=== PATIENT | female | born 1995 | race Caucasian/White ===

== ENCOUNTER → 2020-07-13 | Outpatient (CLI) | payer BC ==
[2020-07-13 13:05] LABS: HEMATOCRIT 40 % (35-52); HEMOGLOBIN 13.7 G/DL (11.5-16.0); MEAN CORPUSCULAR HEMOGLOBIN 31 PG (25-34); MEAN CORPUSCULAR HGB CONC 35 G/DL (32-36); MEAN CORPUSCULAR VOLUME 90 FL (80-99); WHITE BLOOD COUNT 9.7 10^3/uL (4.3-11.0)
[2020-07-13 13:06] LABS: BASOPHILS % (AUTO) 0 % (0-10); EOSINOPHILS % (AUTO) 0 % (0-10); LYMPHOCYTES # (AUTO) 1.7 X 10^3 (1.0-4.0); LYMPHOCYTES % (AUTO) 18 % (12-44); MEAN PLATELET VOLUME 8.8 FL (7.4-10.4); MONOCYTES # (AUTO) 0.5 X 10^3 (0.0-1.0); MONOCYTES % (AUTO) 5 % (0-12); NEUTROPHILS # (AUTO) 7.4 X 10^3 (1.8-7.8); NEUTROPHILS % (AUTO) 76 % (42-75); PLATELET COUNT 304 10^3/uL (130-400)
[2020-07-13 21:48] LABS: HEPATITIS C ANTIBODY C Non-Reactive (Non-Reactive)
== END ==
LOC: LAB FS 12:24
PROVIDERS: ATTEND Obstetrics & Gynecology
DX: Z34.01 Encounter for supervision of normal first pregnancy, first trimester (principal); Z3A.00 Weeks of gestation of pregnancy not specified
CPT/HCPCS: 36415; 80055; 84443; 86762; 86780; 86803

== ENCOUNTER 2021-02-03 23:12 | Inpatient (IN) | payer BC, MEDICAID ==
[~2021-02-03] VITALS: Ht 165 cm; Wt 104.3 kg
[2021-02-03 23:25] VITALS: BP 141/99
[2021-02-03 23:28] VITALS: BP 141/99
[2021-02-03 23:30] VITALS: BP 132/85
[2021-02-03] MEDS: D5 LR IV SOLUTION 1,000 ML IV SCH (23:45)
[2021-02-04] VITALS (50 sets, daily range): BP systolic 103–169; BP diastolic 53–99
[2021-02-04] MEDS ORDERED: fentaNYL 2 mcg/ml BUPIVA 0.125 100 ML ONE (00:02)
[2021-02-04] MEDS ORDERED: NALOXONE 0.4 MG/ML 1 ML (NARCAN) VIAL IV PRN ×3 (00:15→03:00)
[2021-02-04] MEDS ORDERED: LACTATED RINGERS 1,000 ML IV ONE (00:15)
[2021-02-04] MEDS ORDERED: fentaNYL 2 mcg/ml BUPIVA 0.125 100 ML IV SCH (00:15)
[2021-02-04] MEDS ORDERED: CATHETER FLUSH 10 ML SYR IV PRN (00:15)
[2021-02-04 00:23] LABS: BASOPHILS % (AUTO) 0 % (0-10); EOSINOPHILS # (AUTO) 0.1 10^3/uL (0.0-0.3); EOSINOPHILS % (AUTO) 0 % (0-10); HEMATOCRIT 39 % (35-52); HEMOGLOBIN 13.5 g/dL (11.5-16.0); LYMPHOCYTES % (AUTO) 16 % (12-44); MEAN CORPUSCULAR HEMOGLOBIN 32 pg (25-34); MEAN CORPUSCULAR HGB CONC 34 g/dL (32-36); MEAN CORPUSCULAR VOLUME 94 fL (80-99); MEAN PLATELET VOLUME 9.6 fL (9.0-12.2); MONOCYTES # (AUTO) 0.8 10^3/uL (0.0-1.0); MONOCYTES % (AUTO) 6 % (0-12); NEUTROPHILS # (AUTO) 9.4 10^3/uL (1.8-7.8); NEUTROPHILS % (AUTO) 76 % (42-75); PLATELET COUNT 257 10^3/uL (130-400); WHITE BLOOD COUNT 12.4 10^3/uL (4.3-11.0)
[2021-02-04] MEDS ORDERED: BUPIVACAINE 0.25% 30 ML (SENSORCAINE) VIAL ONE (02:20)
[2021-02-04] MEDS ORDERED: fentaNYL INJ 100 MCG/2 ML AMP ONE (02:20)
[2021-02-04] MEDS ORDERED: METOCLOPRAMIDE INJ 10 MG/2 ML (REGLAN) IV PRN (03:00)
[2021-02-04] MEDS ORDERED: EPIDURAL (fentaNYL 2 MCG/ML BUPIVA 0.125%)100 ML BAG EPI PRN (03:00)
[2021-02-04] MEDS ORDERED: diphenhydrAMINE 50 MG/ML INJ (BENADRYL) IV PRN (03:00)
[2021-02-04] MEDS ORDERED: LACTATED RINGERS 1,000 ML IV SCH (03:00)
[2021-02-04] MEDS ORDERED: ONDANSETRON 4 MG/2 ML (SDV) Z0FRAN IV PRN (03:00)
[2021-02-04] MEDS: D5 LR IV SOLUTION 1,000 ML IV SCH ×2 (06:23→16:31)
[2021-02-04] MEDS ORDERED: OXYTOCIN PRE-MIX DRIP 500 ML IV ONE (07:22)
[2021-02-04] MEDS: CATHETER FLUSH 10 ML SYR IV SCH ×2 (07:50→14:39)
[2021-02-04] MEDS ORDERED: OXYTOCIN PRE-MIX DRIP 500 ML IV SCH ×2 (08:00→14:45)
--- NOTE | 2021-02-04 08:28 | History & Physical ---
History and Physical Date Seen by Provider: Feb 04, 2021 Time Seen by Provider: 07:30 This patient is a 25-year-old 1 female who presented in the early hours of the morning with complaint of rupture membranes and occasional contractions. She is currently 40 weeks gestation.She has had no problems with this to date. Her GBS is negative. She was allowed an epidural when the contractions reached intensity that was uncomfortable to her. Allergies are none Medications are vitamins Medical social and surgical history is all per the antepartum record HEENT exam is normal Neck is supple no lymphadenopathy no thyromegaly Abdomen is gravid soft nontender nondistended Extremities show no clubbing cyanosis. There is no Homans' sign. Pelvic exam per the knitting nurse showed a cervix 3 cm dilated 80% effaced after our so that he change to 4 cm. Patient has was grossly ruptured. We will monitor shows normal heart rate pattern with occasional D cellsBut overallA category 1 tracing. Assessment and plan Term at 40 weeks gestation admitted with spontaneous rupture membranes and early labor. At this point we have begun augmentation with Pitocin as she stated 4 cm for several hours and her contractions were spacing out. We do anticipate a vaginal delivery 40 weeks With spontaneous rupture membranes and spontaneous labor Allergies and Home Medications Allergies Coded Allergies: No Known Drug Allergies (Unverified , 02/03/21) Patient Home Medication List Home Medication List Reviewed: Yes RONNELL MAURO MD Feb 04, 2021 08:28
--- NOTE | 2021-02-04 08:33 | Discharge Inst-Surgical ---
Discharge Inst-Surgical Depart Medication/Instructions New, Converted or Re-Newed RX: Other Consults/Follow Up Patient Instructions: As directed Orders & Referrals Follow Up Appt: Call to make follow up appt. for patient in 4 weeks. Activity Per routine post vaginal delivery instructions. Please call in RX to patient pharmacy. Diet as tolerated Patient may shower or tub bathe as desired. Activity Activity as Tolerated: No Diet Discharge Diet: No Restrictions RONNELL MAURO MD Feb 04, 2021 08:33
[2021-02-04] MEDS ORDERED: ACETAMINOPHEN 500 MG TAB (TYLENOL) ONE (08:37)
[2021-02-04] MEDS ORDERED: ACETAMINOPHEN 500 MG TAB (TYLENOL) PO ONE (08:45)
[2021-02-04] MEDS ORDERED: LIDOCAINE 1% INJ 20 ML 20 ML VIAL ONE (10:24)
[2021-02-04] MEDS ORDERED: LIDOCAINE/EPI 2% 1:200,00 (XYLOCAINE) 20 ML VIAL ONE (11:25)
[2021-02-04] MEDS ORDERED: KETOROLAC 30 MG/ML VIAL ONE (14:41)
[2021-02-04] MEDS ORDERED: MEASLES,MUMPS,RUBELLA 1 EA INJ SC ONE (14:45)
[2021-02-04] MEDS: KETOROLAC 30 MG/ML VIAL IVP SCH ×2 (14:45→21:41)
[2021-02-04] MEDS ORDERED: oxyCODONE/APAP 5/325MG (PERCOCET 5) TABLET PO PRN (14:45)
[2021-02-04] MEDS ORDERED: TETANUS,DIPTH,PERTUSS P/F (BOOSTRIX) 0.5 ML VIAL IM ONE (14:45)
[2021-02-04] MEDS ORDERED: ONDANSETRON 4 MG/2 ML (SDV) Z0FRAN IVP PRN (14:45)
[2021-02-04] MEDS ORDERED: BENZOCAINE/MENTHOL (DERMOPLAST) 56 ML CAN TP PRN (14:45)
--- NOTE | 2021-02-04 18:34 | OPERATIVE REPORT ---
DATE OF SERVICE: 02/04/2021 DELIVERY NOTE DELIVER DESCRIPTION: The patient delivered by term spontaneous vaginal delivery a viable female infant with Apgars of 8 and 10 at 1 and 5 minutes respectively, weight of 6 pounds 3 ounces, time of 11:48. Cord blood pH is pending. The was delivered over a midline episiotomy that was performed to shorten the stage of labor due to decreased heart rate and maternal inefficient and ineffective expulsive effort and the patient's request for shortening the second stage of labor. Episiotomy was performed under the epidural and local. The baby delivered promptly after relief of the obstruction. The infant was bulb suctioned on delivery of the head and again on completion of delivery. The umbilical cord was doubly clamped, the father cut the cord, and the baby was passed to mother's abdomen. Cord bloods were obtained. The placenta delivered spontaneously Denise. It was a normal placenta with a 3-vessel cord. The cervix, vagina, rectum, and perineum were examined and found intact, except for the midline episiotomy, which was repaired with a single suture of 3-0 Vicryl Rapide in the usual manner to good hemostasis and good reapproximation. Sponge and needle counts were correct on completion of delivery and repair. Blood loss was around 250 mL. The patient tolerated the delivery and the repair well and remained in the LDR for recovery. The baby remained with the mother. Job ID: [id number] DocumentID: [id number] Dictated Date: 02/04/2021 12:07:24 Laborer/Key Man Date: 02/04/2021 18:33:57 Dictated By: RONNELL MAURO MD
[2021-02-04] MEDS: DOCUSATE SODIUM 100 MG (COLACE) CAP PO SCH (21:41)
[2021-02-05] MEDS: KETOROLAC 30 MG/ML VIAL IVP SCH (03:35)
[2021-02-05 03:36] VITALS: BP 117/71
[2021-02-05] MEDS ORDERED: IBUPROFEN 800 MG (MOTRIN) TAB PO SCH (06:00)
--- NOTE | 2021-02-05 08:33 | Progress Note ---
Standard Progress Note Progress Notes/Assess & Plan Date Seen by a Provider: Feb 05, 2021 Time Seen by a Provider: 08:32 Progress/Assessment & Plan This patient is without complaint. She is ambulating, voiding, tolerating oral intake well has good pain control. Vital Signs 02/04/21 02/05/21 09:45 03:36 Temp 37.0 Pulse 74 Resp 18 B/P (MAP) 117/71 (86) Pulse Ox 98 O2 Delivery Room Air O2 Flow Rate 15.00 Vital signs are stable. Patient is afebrile. Fundus is firm below the umbilicus and nontender. Extremities show no clubbing or cyanosis. There is no Homans' sign. Assessment and plan day #1 status post term spontaneous vaginal delivery at 40 weeks gestation. Plan is for routine convalescent care Final Diagnosis 40-week spontaneous vaginal delivery RONNELL MAURO MD Feb 05, 2021 08:33
[2021-02-05] MEDS ORDERED: DOCU100C37 PO (08:35)
[2021-02-05] MEDS ORDERED: OXYC1TAB87 PO (08:35)
[2021-02-05] MEDS ORDERED: IBUP-1780 PO (08:35)
[2021-02-05] MEDS ORDERED: IBUPROFEN 800 MG (MOTRIN) TAB PO ONE (09:46)
[2021-02-05] MEDS: DOCUSATE SODIUM 100 MG (COLACE) CAP PO SCH (09:49)
[2021-02-05 09:53] VITALS: BP 123/63
--- NOTE | 2021-02-05 12:40 | Anesthesia-Regional Post-Op ---
Regional Patient Condition Mental Status: Alert, Oriented x3 Circulation: Same as Pre-Op Headache: Absent Sensation: Full Recovery Motor Block: Absent Post Op Complications Complications None Follow Up Care/Instructions Patient Instructions None needed. Anesthesia/Patient Condition Patient is doing well, no complaints, stable vital signs, no apparent adverse anesthesia problems. BROOKLYNN MEEHAN DO Feb 05, 2021 12:40
[2021-02-05 14:55] VITALS: BP 133/76
[2021-02-09] MEDS ORDERED: IBUPROFEN 800 MG (MOTRIN) TAB PO SCH (06:00)
== END 2021-02-05 15:35 | disposition home or self-care (01) | DRG 807 ==
LOC: WSo 23:12 → LDRP 23:17 → WSo 23:29 → LDRP 23:30
PROVIDERS: ADMIT Obstetrics & Gynecology; ATTEND Obstetrics & Gynecology
PROC: 10E0XZZ Delivery of Products of Conception, External Approach (ICD-10-PCS; principal; 2021-02-04)
PROC: 0W8NXZZ Division of Female Perineum, External Approach (ICD-10-PCS; 2021-02-04)
DX: O76 Abnormality in fetal heart rate and rhythm complicating labor and delivery (principal); Z37.0 Single live birth; O62.9 Abnormality of forces of labor, unspecified; Z3A.40 40 weeks gestation of pregnancy
CPT/HCPCS: 36415; 85025; 86780; 86850; 86900; 86901; 99212

== ENCOUNTER → 2021-08-30 | Outpatient (CLI) | payer BC, MEDICAID ==
[~2021-08-30] MED LIST: DOCU100C37 PO; IBUP-1780 PO; OXYC1TAB87 PO
== END ==
LOC: LABNPT 10:50
PROVIDERS: ATTEND Obstetrics & Gynecology
DX: Z30.9 Encounter for contraceptive management, unspecified (principal)
CPT/HCPCS: 84443